=== PATIENT | female | born 1935 | race Caucasian/White ===

== ENCOUNTER 2017-10-17 10:01 | Emergency (ER) | payer MEDICARE, BC ==
[~2017-10-17] VITALS: Ht 160 cm; Wt 57.2 kg
[~2017-10-17 10:01] MED LIST: ASPIRIN81 MG PO; ATORVASTATIN CA10 MG PO; CEFTIN250 MG PO; DICYCLOMINE HCL10 MG; DIOVAN160 MG PO; IRBESARTAN150 MG; METOPROLOL SUC100 MG PO; NIFEDICAL XL60 MG PO; PACERONE100 MG PO; PREDNISONE10 MG PO
[2017-10-17] MEDS ORDERED: SERTRALINE HCL50 MG PO (10:43)
[2017-10-17 12:34] VITALS: BP 158/88
== END 2017-10-17 11:56 | disposition home or self-care (01) ==
LOC: FSED 10:01
DX: S50.311A Abrasion of right elbow, initial encounter (principal); W10.8XXA Fall (on) (from) other stairs and steps, initial encounter; S46.911A Strain of unspecified muscle, fascia and tendon at shoulder and upper arm level, right arm, initial encounter; Y93.01 Activity, walking, marching and hiking; Y92.012 Bathroom of single-family (private) house as the place of occurrence of the external cause
CPT/HCPCS: 99283